=== PATIENT | male | born 1950 | race Caucasian/White ===

== ENCOUNTER 2021-02-14 12:15 | Emergency (ER) | payer OTHER ==
[2021-02-14 12:41] VITALS: BP 144/73; PULSE 74; TEMP 98.5; BMI 26.6
[2021-02-14] MEDS ORDERED: NAPROXEN 500 MG TABLET PO ONE (12:43)
[2021-02-14] MEDS ORDERED: NAPROXEN 500 MG TABLET ONE (12:56)
== END 2021-02-14 15:32 | disposition home or self-care (01) ==
LOC: FER 12:15
DX: M79.652 Pain in left thigh (principal)
CPT/HCPCS: 73552-TC-LT-FY; 93971-TC; 99284-25